=== PATIENT | female | born 1950 | race Caucasian/White ===

== ENCOUNTER 2023-08-22 16:09 | Emergency (ER) | payer MEDICARE, BC ==
[~2023-08-22] VITALS: Ht 170.2 cm; Wt 128.4 kg
[2023-08-22] MEDS ORDERED: KETOROLAC TROMETHAMINE INJ 30 MG/ML VIAL ONE (16:24)
[2023-08-22] MEDS: KETOROLAC TROMETHAMINE INJ 60 MG/2 ML VIAL IM ONE (16:25)
[2023-08-22] MEDS ORDERED: FLUT1BLS6 IH (18:50)
[2023-08-22] MEDS ORDERED: GABA300C PO (18:50)
[2023-08-22] MEDS ORDERED: METO-295 PO (18:50)
[2023-08-22] MEDS ORDERED: SIMV10TA98 PO (18:50)
[2023-08-22] MEDS ORDERED: PANT40TA49 PO (18:50)
[2023-08-22] MEDS ORDERED: LOSA25TA27 PO (18:50)
[2023-08-22] MEDS ORDERED: HYDR-4279 PO (18:50)
[2023-08-22] MEDS ORDERED: DULO60CA45 PO (18:50)
[2023-08-22] MEDS ORDERED: OMEP20TA5 PO (18:50)
[2023-08-22 19:11] VITALS: BP 131/69; TEMP 97.5; O2SAT 98
== END 2023-08-22 19:12 | disposition home or self-care (01) ==
LOC: ER 16:15
DX: S42.292A Other displaced fracture of upper end of left humerus, initial encounter for closed fracture (principal); I10 Essential (primary) hypertension; Z60.2 Problems related to living alone; Z79.899 Other long term (current) drug therapy; W01.0XXA Fall on same level from slipping, tripping and stumbling without subsequent striking against object, initial encounter; Y93.89 Activity, other specified; Y92.89 Other specified places as the place of occurrence of the external cause; Y99.8 Other external cause status
CPT/HCPCS: 99284; 23650; 96372; 73060; 73030; J1885

== ENCOUNTER 2025-05-11 17:37 | Inpatient (IN) | payer MEDICARE, BC ==
[~2025-05-11] VITALS: Ht 170.2 cm; Wt 130.6 kg
[~2025-05-11 17:37] MED LIST: DULO60CA45 PO; FLUT1BLS6 IH; GABA300C PO; HYDR-4279 PO; LOSA25TA27 PO; METO-295 PO; OMEP20TA5 PO; PANT40TA49 PO; SIMV10TA98 PO
[2025-05-11 19:16] LABS: PLATELET COUNT (AUTO) 322 K/uL (150-450); RED BLOOD CELL COUNT(AUTO) 4.34 MIL/uL (4.0-5.2); RED CELL DISTRIBUTION WIDTH 14.7 % (11.5-15.0); WHITE BLOOD COUNT (AUTO) 7.3 K/uL (4.3-11.0)
[2025-05-11] MEDS ORDERED: MORPHINE SULFATE INJ 4 MG/ML DISP.SYRIN ONE ×2 (19:22→21:58)
[2025-05-11 19:29] LABS: CALCIUM, SERUM 8.7 mg/dL (8.5-10.1); CREATININE 1.4 mg/dL (0.6-1.3); SODIUM SERUM 138.0 mmol/L (136-145); UREA NITROGEN, BLOOD 21.0 mg/dL (7-18)
[2025-05-11] MEDS: IV NS 0.9% 1,000 ML BAG IV ONE (19:34)
[2025-05-11 19:35] LABS: ASPARTATE AMINOTRANSFERASE 14.0 U/L (15-37); TOTAL PROTEIN, SERUM 6.6 g/dL (6.4-8.2)
[2025-05-11] MEDS: MORPHINE SULFATE INJ 2 MG/ML DISP.SYRIN IV ONE ×2 (19:35→22:07)
[2025-05-12] MEDS ORDERED: MAGNESIUM HYDROXIDE 30 ML UDC PO PRN (06:30)
[2025-05-12] MEDS ORDERED: MAG HYDROX/AL HYDROX/SIMETH 30 ML UDC PO PRN (06:30)
[2025-05-12] MEDS ORDERED: ONDANSETRON HCL/PF 4 MG/2 ML VIAL IVP PRN (06:30)
[2025-05-12 07:08] LABS: PLATELET COUNT (AUTO) 324 K/uL (150-450); RED BLOOD CELL COUNT(AUTO) 4.37 MIL/uL (4.0-5.2); RED CELL DISTRIBUTION WIDTH 14.3 % (11.5-15.0); WHITE BLOOD COUNT (AUTO) 6.7 K/uL (4.3-11.0)
[2025-05-12 07:20] LABS: CALCIUM, SERUM 8.8 mg/dL (8.5-10.1); CREATININE 1.4 mg/dL (0.6-1.3); PHOSPHORUS 3.8 mg/dL (2.5-4.9); SODIUM SERUM 142.0 mmol/L (136-145); UREA NITROGEN, BLOOD 16.0 mg/dL (7-18)
[2025-05-12 08:00] VITALS: BP 156/92; TEMP 97.5; O2SAT 95
[2025-05-12] MEDS ORDERED: ENOXAPARIN SODIUM 40 MG/0.4 ML DISP.SYRIN SQ ONE (08:03)
[2025-05-12] MEDS: ENOXAPARIN SODIUM 40 MG/0.4 ML DISP.SYRIN SQ SCH (08:04)
[2025-05-12] MEDS ORDERED: PREG50CA PO (08:49)
[2025-05-12] MEDS: MORPHINE SULFATE INJ 4 MG/ML DISP.SYRIN IV PRN (08:50)
[2025-05-12] MEDS: DOCUSATE SODIUM 100 MG CAPSULE PO SCH (09:00)
[2025-05-12] MEDS ORDERED: IV NS 0.9% 1,000 ML BAG IV SCH (12:00)
[2025-05-12] MEDS: PREGABALIN 25 MG CAPSULE PO SCH (12:41)
[2025-05-12] MEDS: HYDROCODONE/APAP 10/325MG TABLET PO PRN (12:43)
[2025-05-12] MEDS: IV NS 0.9% 1,000 ML IV PRN (15:48)
[2025-05-12 16:00] VITALS: BP 158/72; TEMP 98.1; O2SAT 94
[2025-05-12] MEDS: LOSARTAN POTASSIUM 25 MG TABLET PO SCH (17:29)
[2025-05-12] MEDS: SIMVASTATIN 10 MG TABLET PO SCH (17:29)
[2025-05-12 20:00] VITALS: BP 127/92; TEMP 97.7; O2SAT 93
[2025-05-12] MEDS: DULOXETINE HCL 30 MG CAPSULE.DR PO SCH (22:37)
[2025-05-13] VITALS (7 sets, daily range): BP systolic 97–133; BP diastolic 63–82; TEMP 97.3–99; O2SAT 89–98
[2025-05-13] MEDS ORDERED: LEVALBUTEROL HCL NEB 1.25 MG/0.5 ML VIAL.NEB NEB PRN (02:30)
[2025-05-13] MEDS: LEVALBUTEROL HCL NEB 1.25 MG/0.5 ML VIAL.NEB NEB PRN (05:14)
[2025-05-13] MEDS: PANTOPRAZOLE 40 MG TABLET.DR PO SCH (06:34)
[2025-05-13 07:12] LABS: PLATELET COUNT (AUTO) 346 K/uL (150-450); RED BLOOD CELL COUNT(AUTO) 4.81 MIL/uL (4.0-5.2); RED CELL DISTRIBUTION WIDTH 14.6 % (11.5-15.0); WHITE BLOOD COUNT (AUTO) 7.3 K/uL (4.3-11.0)
[2025-05-13 07:33] LABS: CALCIUM, SERUM 8.4 mg/dL (8.5-10.1); CREATININE 1.3 mg/dL (0.6-1.3); PHOSPHORUS 3.6 mg/dL (2.5-4.9); SODIUM SERUM 142.0 mmol/L (136-145); UREA NITROGEN, BLOOD 13.0 mg/dL (7-18)
[2025-05-13 10:02] LABS: ABG BASE EXCESS 1.4 mmol/L (-2.0-3.0); ABG OXYGEN SATURATION 91.1 % (94.0-98.0); ABG PCO2 36.8 mmHg (32.0-45.0); ABG PH 7.452 (7.350-7.450); ABG PO2 59.7 mmHg (83.0-108.0); ABG TOTAL HEMOGLOBIN 13.3 G/dL (12.0-16.0); FLOW, BLOOD GAS 5.00 L/min (0.00-30.00); FRACTIONATED INSPIRED OXYGEN 40.0 %; SITE, ABG LEFT RADIAL
[2025-05-13 22:59] LABS: APPEARANCE,URINE CLEAR (CLEAR); BLOOD, URINE NEGATIVE Ery/uL (NEGATIVE); LEUKOCYTE ESTERASE ,URINE NEGATIVE (NEGATIVE); NITRITE, URINE NEGATIVE (NEGATIVE); UGLUCOSE NEGATIVE (NEGATIVE)
[2025-05-13 23:06] LABS: CREATININE, URINE 79.1 MG/DL (30.0-125.0); URINE SODIUM, RANDOM 163.0 mmol/l (40-220); URINE TOTAL PROTEIN 37.9 mg/dL (0-11.9)
[2025-05-13 23:42] LABS: SQUAMOUS EPITHELIAL CELL,UR Moderate /HPF (None Seen)
[2025-05-13 23:43] LABS: ADD URINE CULTURE YES
[2025-05-14 01:28] LABS: EOSINOPHIL,URINE None Seen
[2025-05-14 07:32] LABS: PLATELET COUNT (AUTO) 315 K/uL (150-450); RED BLOOD CELL COUNT(AUTO) 4.36 MIL/uL (4.0-5.2); RED CELL DISTRIBUTION WIDTH 14.7 % (11.5-15.0); WHITE BLOOD COUNT (AUTO) 7.4 K/uL (4.3-11.0)
[2025-05-14 08:00] VITALS: BP 145/95; TEMP 97.5; O2SAT 96
[2025-05-14 08:07] LABS: ASPARTATE AMINOTRANSFERASE 15.0 U/L (15-37); CALCIUM, SERUM 8.6 mg/dL (8.5-10.1); CREATININE 1.2 mg/dL (0.6-1.3); PHOSPHORUS 3.3 mg/dL (2.5-4.9); SODIUM SERUM 141.0 mmol/L (136-145); TOTAL PROTEIN, SERUM 6.2 g/dL (6.4-8.2); UREA NITROGEN, BLOOD 15.0 mg/dL (7-18)
[2025-05-14] MEDS: LEVOFLOXACIN 750 MG /D5W 150ML 150 ML IV ONE (10:19)
[2025-05-14] MEDS: HYDROCODONE/APAP 5/325MG TABLET PO PRN (10:41)
[2025-05-14 12:18] VITALS: BP 125/82; O2SAT 95
[2025-05-14 16:00] VITALS: BP 136/69; TEMP 98.4; O2SAT 96
[2025-05-14 22:10] VITALS: BP 130/76; TEMP 98.2; O2SAT 90
[2025-05-15] VITALS (7 sets, daily range): BP systolic 143–157; BP diastolic 93–98; TEMP 97.4–98.4; O2SAT 91–98
[2025-05-15] MEDS: ACETAMINOPHEN 325 MG TABLET PO PRN (08:04)
[2025-05-15] MEDS: FERROUS SULFATE (325 MG) 325 MG/TAB TABLET PO SCH (10:30)
[2025-05-15 10:33] LABS: PLATELET COUNT (AUTO) 311 K/uL (150-450); RED BLOOD CELL COUNT(AUTO) 4.38 MIL/uL (4.0-5.2); RED CELL DISTRIBUTION WIDTH 14.9 % (11.5-15.0); WHITE BLOOD COUNT (AUTO) 6.8 K/uL (4.3-11.0)
[2025-05-15] MEDS: IPRATROPIUM NEB FS 0.5 MG/2.5 ML AMPUL.NEB NEB PRN (21:00)
[2025-05-16] VITALS (8 sets, daily range): BP systolic 130–135; BP diastolic 77–79; TEMP 97.3–97.5; O2SAT 92–99
[2025-05-16 07:29] LABS: PLATELET COUNT (AUTO) 314 K/uL (150-450); RED BLOOD CELL COUNT(AUTO) 4.18 MIL/uL (4.0-5.2); RED CELL DISTRIBUTION WIDTH 14.3 % (11.5-15.0); WHITE BLOOD COUNT (AUTO) 8.1 K/uL (4.3-11.0)
[2025-05-16] MEDS: LEVOFLOXACIN (250MG) 250 MG TABLET PO SCH (08:17)
[2025-05-16] MEDS ORDERED: LEVOFLOXACIN 750 MG /D5W 150ML 750 MG in PREMIX 1 EA IV SCH (09:00)
[2025-05-16] MEDS: GUAIFENESIN 300 MG/15 ML UDC PO PRN (20:56)
[2025-05-17 07:00] VITALS: BP 159/91; TEMP 97.7; O2SAT 93
[2025-05-17 07:54] LABS: PLATELET COUNT (AUTO) 330 K/uL (150-450); RED BLOOD CELL COUNT(AUTO) 4.17 MIL/uL (4.0-5.2); RED CELL DISTRIBUTION WIDTH 14.3 % (11.5-15.0); WHITE BLOOD COUNT (AUTO) 6.5 K/uL (4.3-11.0)
[2025-05-17 15:00] VITALS: BP 134/115; TEMP 98.4; O2SAT 97
[2025-05-17] MEDS: MORPHINE SULFATE INJ 4 MG/ML DISP.SYRIN IV PRN (17:21)
[2025-05-17] MEDS ORDERED: oxyCODONE IR immediate release 5 MG TABLET PO PRN (17:30)
[2025-05-17 20:00] VITALS: BP 115/82; TEMP 97.5; O2SAT 96
[2025-05-17 20:12] VITALS: BP 115/82; TEMP 97.5; O2SAT 96
[2025-05-17] MEDS: oxyCODONE IR immediate release 5 MG TABLET PO PRN (21:47)
[2025-05-18] MEDS ORDERED: ONDA4TAB5 PO (08:30)
[2025-05-18] MEDS ORDERED: OXYC10TA49 PO (08:30)
[2025-05-18] MEDS ORDERED: LEVO500T90 PO (08:30)
[2025-05-18 09:18] VITALS: BP 158/90; TEMP 97.5; O2SAT 97
[2025-05-18 21:11] LABS: *MYCOPLASMA PNEUMONIAE IgG 323 U/mL (0-99); *MYCOPLASMA PNEUMONIAE IgM <770 U/mL (0-769)
[2025-05-18 22:07] LABS: LEGIONELLA PNEUMOPHILIA AB Non Reactive (Non Reactive)
== END 2025-05-18 14:10 | disposition home health service (06) | DRG 553 ==
LOC: ER 18:28 → MED 05-12 07:22
PROVIDERS: ADMIT Nurse Practitioner Family; ATTEND Nurse Practitioner Acute Care
DX: M16.12 Unilateral primary osteoarthritis, left hip (principal); J96.21 Acute and chronic respiratory failure with hypoxia; N17.0 Acute kidney failure with tubular necrosis; E44.1 Mild protein-calorie malnutrition; N17.9 Acute kidney failure, unspecified; I10 Essential (primary) hypertension; E66.01 Morbid (severe) obesity due to excess calories; D50.9 Iron deficiency anemia, unspecified; Z68.42 Body mass index [BMI] 45.0-49.9, adult; E86.0 Dehydration; R26.9 Unspecified abnormalities of gait and mobility; Z20.822 Contact with and (suspected) exposure to COVID-19; E78.5 Hyperlipidemia, unspecified; M17.0 Bilateral primary osteoarthritis of knee; Z79.51 Long term (current) use of inhaled steroids; Z79.899 Other long term (current) drug therapy; M89.8X9 Other specified disorders of bone, unspecified site; Z79.891 Long term (current) use of opiate analgesic; Z87.01 Personal history of pneumonia (recurrent); Z98.84 Bariatric surgery status; E83.41 Hypermagnesemia; E88.09 Other disorders of plasma-protein metabolism, not elsewhere classified; G89.4 Chronic pain syndrome; M79.7 Fibromyalgia; M85.80 Other specified disorders of bone density and structure, unspecified site; M48.07 Spinal stenosis, lumbosacral region; Z98.1 Arthrodesis status; G47.30 Sleep apnea, unspecified; M16.11 Unilateral primary osteoarthritis, right hip
CPT/HCPCS: 36415; 36600; 70220-TC; 71045-TC; 71250-TC; 72131-TC; 73502; 73564-TC; 80048-TC; 80053-TC; 81001; 82378; 82570-TC; 82728-TC; 82803-TC; 83540-TC; 83735-TC; 84100-TC; 84300-TC; 85025-TC; 85378-TC; 86713; 86738; 87086-TC; 93971-TC; 94760-TC; 94799-TC; 97110-TC; 97112-TC; 97116-TC; 97530-TC; 97535-TC; A4216; A4223; G0378; J1650; J1956; J2270; J7030

== ENCOUNTER 2025-05-19 17:11 | Inpatient (IN) | payer MEDICARE, BC ==
[~2025-05-19] VITALS: Ht 170.2 cm; Wt 133.4 kg
[~2025-05-19 17:11] MED LIST changes: -GABA300C PO; -HYDR-4279 PO; +LEVO500T90 PO; -METO-295 PO; -OMEP20TA5 PO; +ONDA4TAB5 PO; +OXYC10TA49 PO; +PREG50CA PO
[2025-05-19] MEDS ORDERED: CYCLOBENZAPRINE 10 MG TABLET ONE (18:32)
[2025-05-19] MEDS ORDERED: KETOROLAC TROMETHAMINE INJ 30 MG/ML VIAL ONE (18:32)
[2025-05-19] MEDS ORDERED: oxyCODONE/APAP (5/325 MG) 1 UDTAB TABLET ONE (18:32)
[2025-05-19 18:36] LABS: WHITE BLOOD COUNT (AUTO) 7.2 K/uL (4.3-11.0)
[2025-05-19] MEDS: CYCLOBENZAPRINE 10 MG TABLET PO ONE (18:37)
[2025-05-19] MEDS: oxyCODONE/APAP (5/325 MG) 1 UDTAB TABLET PO ONE (18:38)
[2025-05-19 18:39] LABS: PLATELET COUNT (AUTO) 367 K/uL (150-450); RED BLOOD CELL COUNT(AUTO) 4.75 MIL/uL (4.0-5.2); RED CELL DISTRIBUTION WIDTH 14.2 % (11.5-15.0)
[2025-05-19] MEDS: KETOROLAC TROMETHAMINE INJ 30 MG/ML VIAL IM ONE (18:39)
[2025-05-19 18:43] LABS: CALCIUM, SERUM 8.9 mg/dL (8.5-10.1); CREATININE 1.5 mg/dL (0.6-1.3); SODIUM SERUM 136 mmol/L (136-145); UREA NITROGEN, BLOOD 19 mg/dL (7-18)
[2025-05-19 18:49] LABS: ASPARTATE AMINOTRANSFERASE 21 U/L (15-37); TOTAL PROTEIN, SERUM 7.6 g/dL (6.4-8.2)
[2025-05-19 21:10] VITALS: BP 147/96; TEMP 98.1; O2SAT 94
[2025-05-19] MEDS ORDERED: MAGNESIUM HYDROXIDE 30 ML UDC PO PRN (21:30)
[2025-05-19] MEDS ORDERED: LEVOFLOXACIN (500MG) 500 MG TABLET PO SCH (21:30)
[2025-05-19] MEDS ORDERED: ONDANSETRON HCL/PF 4 MG/2 ML VIAL IVP PRN (21:30)
[2025-05-19] MEDS ORDERED: MAG HYDROX/AL HYDROX/SIMETH 30 ML UDC PO PRN (21:30)
[2025-05-19] MEDS ORDERED: ACETAMINOPHEN 325 MG TABLET PO PRN (21:30)
[2025-05-19] MEDS: IV NS 0.9% 1,000 ML IV PRN (22:34)
[2025-05-19] MEDS: PREGABALIN 25 MG CAPSULE PO SCH (22:39)
[2025-05-19] MEDS: DULOXETINE HCL 30 MG CAPSULE.DR PO SCH (22:39)
[2025-05-19] MEDS: LEVOFLOXACIN (250MG) 250 MG TABLET PO ONE (22:39)
[2025-05-20 00:05] VITALS: O2SAT 94
[2025-05-20 00:20] VITALS: O2SAT 95
[2025-05-20] MEDS: ALBUTEROL FS 2.5 MG/0.5 ML VIAL.NEB NEB PRN (00:45)
[2025-05-20] MEDS: IPRATROPIUM NEB FS 0.5 MG/2.5 ML AMPUL.NEB NEB PRN (00:46)
[2025-05-20 07:03] LABS: PLATELET COUNT (AUTO) 292 K/uL (150-450); RED BLOOD CELL COUNT(AUTO) 4.50 MIL/uL (4.0-5.2); RED CELL DISTRIBUTION WIDTH 14.9 % (11.5-15.0); WHITE BLOOD COUNT (AUTO) 7.6 K/uL (4.3-11.0)
[2025-05-20 07:12] LABS: CALCIUM, SERUM 8.6 mg/dL (8.5-10.1); CREATININE 1.4 mg/dL (0.6-1.3); PHOSPHORUS 4.4 mg/dL (2.5-4.9); SODIUM SERUM 140.0 mmol/L (136-145); UREA NITROGEN, BLOOD 19.0 mg/dL (7-18)
[2025-05-20 07:30] VITALS: BP 126/107; TEMP 97.9; O2SAT 99
[2025-05-20] MEDS ORDERED: PANTOPRAZOLE 40 MG TABLET.DR PO SCH (07:30)
[2025-05-20] MEDS: LEVOFLOXACIN (250MG) 250 MG TABLET PO SCH (08:15)
[2025-05-20] MEDS: PANTOPRAZOLE 40 MG TABLET.DR PO SCH (08:15)
[2025-05-20] MEDS: ENOXAPARIN SODIUM 40 MG/0.4 ML DISP.SYRIN SQ SCH (09:17)
[2025-05-20] MEDS: AZITHROMYCIN 500 MG in IV D5W 250 ML IV SCH (09:18)
[2025-05-20 10:04] LABS: ABG BASE EXCESS 0.1 mmol/L (-2.0-3.0); ABG OXYGEN SATURATION 83.0 % (94.0-98.0); ABG PCO2 44.1 mmHg (32.0-45.0); ABG PH 7.379 (7.350-7.450); ABG PO2 49.1 mmHg (83.0-108.0); ABG TOTAL HEMOGLOBIN 12.6 G/dL (12.0-16.0); FRACTIONATED INSPIRED OXYGEN 21.0 %; SITE, ABG RIGHT RADIAL
[2025-05-20 10:30] VITALS: BP 149/70
[2025-05-20] MEDS: oxyCODONE IR immediate release 5 MG TABLET PO PRN (10:34)
[2025-05-20 16:00] VITALS: BP 128/73; TEMP 98.1; O2SAT 94
[2025-05-20] MEDS: SIMVASTATIN 10 MG TABLET PO SCH (17:52)
[2025-05-20] MEDS: LOSARTAN POTASSIUM 25 MG TABLET PO SCH (17:53)
[2025-05-20 20:00] VITALS: BP 103/74; TEMP 98.6; O2SAT 94
[2025-05-21] MEDS: Z GUARD REMEDY 4 OZ OINT TP SCH (09:00)
[2025-05-21 09:54] VITALS: BP 126/80; TEMP 97.9; O2SAT 94
[2025-05-21] MEDS: Z GUARD REMEDY 4 OZ OINT TP PRN (13:45)
[2025-05-21 20:00] VITALS: BP 123/77; TEMP 97.5; O2SAT 93
[2025-05-22] VITALS (9 sets, daily range): BP systolic 113–125; BP diastolic 63–84; TEMP 97.7–98.1; O2SAT 91–96
[2025-05-22] MEDS: AZITHROMYCIN 250 MG TABLET PO SCH (08:25)
[2025-05-22 08:29] LABS: CALCIUM, SERUM 8.5 mg/dL (8.5-10.1); CREATININE 1.2 mg/dL (0.6-1.3); SODIUM SERUM 141.0 mmol/L (136-145); UREA NITROGEN, BLOOD 16.0 mg/dL (7-18)
[2025-05-23 05:47] VITALS: O2SAT 93
[2025-05-23 06:02] VITALS: O2SAT 98
[2025-05-23 08:00] VITALS: BP_SYST 128; BP_SYST 190; BP_DIAS 69; BP_DIAS 96; TEMP 98; O2SAT 94; O2SAT 96
== END 2025-05-23 13:30 | DRG 553 ==
LOC: ER 17:15 → MED 20:32
PROVIDERS: ADMIT Nurse Practitioner Family; ATTEND Nurse Practitioner Acute Care
DX: M16.12 Unilateral primary osteoarthritis, left hip (principal); J15.7 Pneumonia due to Mycoplasma pneumoniae; N17.0 Acute kidney failure with tubular necrosis; J96.01 Acute respiratory failure with hypoxia; E44.1 Mild protein-calorie malnutrition; E66.2 Morbid (severe) obesity with alveolar hypoventilation; E88.09 Other disorders of plasma-protein metabolism, not elsewhere classified; I12.9 Hypertensive chronic kidney disease with stage 1 through stage 4 chronic kidney disease, or unspecified chronic kidney disease; Z68.42 Body mass index [BMI] 45.0-49.9, adult; M79.7 Fibromyalgia; E86.0 Dehydration; E78.5 Hyperlipidemia, unspecified; G89.29 Other chronic pain; N18.2 Chronic kidney disease, stage 2 (mild); R26.89 Other abnormalities of gait and mobility; E83.89 Other disorders of mineral metabolism; Z87.01 Personal history of pneumonia (recurrent)
CPT/HCPCS: 36415; 36600; 71045-TC; 73521; 80048-TC; 80076-TC; 82803-TC; 83735-TC; 84100-TC; 84484-TC; 85025-TC; 94760-TC; 94761-TC; 94762-TC; 94799-TC; 97110-TC; 97116-TC; 97530-TC; 97535-TC; A4223; G0378; J0456; J1650; J1885; J7030; J7060